=== PATIENT | male | born 1980 | race Two or more races ===

== ENCOUNTER 2021-06-13 03:01 | Emergency (ER) | payer SELFPAY ==
[~2021-06-13] VITALS: Ht 162.6 cm; Wt 59.0 kg
[2021-06-13 03:06] VITALS: BP 132/98
--- NOTE | 2021-06-13 03:11 | NUR ---
PT [facility] WITH C/O LOWER EXTREMITY PAIN IN BILATERAL LEGS. PT ALERT AND ORIENTED X4. WHEELCHAIR BOUND WITH NON LABORED BREATHING.
--- NOTE | 2021-06-13 03:12 | NUR ---
PATIENT IS REFUSING TO HAVE ANYTHING DONE TO HIM PER MD. AMA TO BE SIGNED.
--- NOTE | 2021-06-13 03:55 | NUR ---
verbal order of norco 5-325mg po
[2021-06-13] MEDS ORDERED: HYDROCODONE/APAP 5/325MG TABLET ONE (03:56)
[2021-06-13] MEDS ORDERED: HYDR-4209 PO (04:02)
--- NOTE | 2021-06-13 04:20 | NUR ---
Patient does not wish to proceed with medical care recommended by Jesus Chaney. Patient given information related to possible complications, up to and including , which could occur as a result of leaving the hospital at this time. Patient verbalizes understanding of risks involved due to leaving against medical advice. Patient has signed AMA form.
[2021-06-13] MEDS ORDERED: HYDROCODONE/APAP 5/325MG TABLET PO ONE (04:30)
== END 2021-06-13 04:22 | disposition left against medical advice (07) ==
LOC: ER 03:03
DX: G89.18 Other acute postprocedural pain (principal); M79.605 Pain in left leg; M79.604 Pain in right leg; Z60.2 Problems related to living alone